=== PATIENT | male | born 1960 | race Caucasian/White ===

== ENCOUNTER → 2016-08-25 | Outpatient (CLI) | payer OTHER ==
--- NOTE | 2016-08-25 22:33 | MR ---
EXAMINATION TYPE: MR lumbar spine wo con DATE OF EXAM: 08/25/2016 10:04 PM COMPARISON: Lumbar spine x-ray June 22, 2015. Outside MRI lumbar spine report July 17, 2015. HISTORY: Lumbar region radiculopathy and lumbosacral region other intervertebral disc displacement pe r order. Low back pain for 10 years causing pain into bilateral lower extremities per patient. TECHNIQUE: Multiplanar, multisequence imaging of the lumbar spine is performed without IV contrast. FINDINGS: Sagittal images of the lumbar spine show vertebral body heights and alignment to appear sat isfactory. There is multilevel disc desiccation with relative sparing of L5-S1 level. There is mild d isc space narrowing L3-L4 and L4-L5 levels noted as discussed on prior report. Small posterior disc h erniations are present at L2-L3-L4-L5 levels mildly effacing anterior thecal sac on sagittal images. The conus medullaris is normal in position and signal ending at superior L1 vertebral body level. Th e bone marrow signal intensity is within normal limits. No significant spurring is present. Axial images show the T12-L1 and L1-L2 levels to appear within normal limits. Axial images at the L2-L3 level show mild broad disc bulge with right foraminal disc protrusion compo nent. There is effacement of the anterior thecal sac. There is mild to moderate anterior inferior rig ht-sided neural foraminal narrowing. Left-sided central foramen is patent. Finding may show interval progression based on comparison with outside report. Axial images at L3-L4 level show mild facet degenerative changes mildly effacing the posterior latera l thecal sac. There is mild to moderate broad disc bulge mildly effacing the anterior thecal sac. The re is mild to moderate bilateral anterior inferior neural foraminal narrowing noted. Axial images at L4-L5 level show mild facet degenerative changes bilaterally. There is broad disc bul ge mildly effacing anterior thecal sac. There is mild to moderate bilateral anterior inferior neural foraminal narrowing at this level identified. Axial images at L5-S1 level show mild facet degenerative changes bilaterally. Spinal canal is preserv ed. Bilateral neural foramina are patent. There are few round T2 hyperintense lesions laterally in right kidney likely reflecting simple cysts. IMPRESSION: Some multilevel degenerative changes most prominent in the lumbar spine at L2-L3 through the L4-L5 levels, there may be progression at L2-L3 level given comparison with old outside MRI repor t.
== END | disposition home or self-care (01) ==
LOC: RADMRIMAIN 21:13
PROVIDERS: ATTEND Neurological Surgery
DX: M47.26 Other spondylosis with radiculopathy, lumbar region (principal)
CPT/HCPCS: 72148

== ENCOUNTER → 2017-08-13 | Outpatient (CLI) | payer OTHER ==
--- NOTE | 2017-08-13 15:50 | MR ---
EXAMINATION TYPE: MR lumbar spine wo/w con DATE OF EXAM: 08/13/2017 COMPARISON: NONE HISTORY: Low Back Pain / Radiculopathy TECHNIQUE: Multiplanar, multisequence images of the lumbar spine were acquired utilizing [address] gadolinium contrast. FINDINGS: The bone marrow signal is slightly heterogenous but overall within normal limits. Vertebral bodies of the lumbar spine maintains vertebral body heights and alignment. Possible 4 mm vertebral b jairo hemangioma seen of L4. The conus medullaris is unremarkable terminating at T12-L1. There is a non enhancing T2 hyperintense and T1 hypointense right renal lesion that is partially visualized but appe ars to measure at least 9 mm, this most likely represents a renal cyst. L1-L2: Normal disc appearance without desiccation. No herniation, protrusion or disc bulging. No ca nal stenosis is present. Foramina are patent bilaterally. L2-L3: There is a right lateral disc herniation with portions in the right lateral recess extending i nto the neural foramen creating mild to moderate neural foraminal narrowing. Left neural foramen and spinal canal are patent. There is minimal facet arthropathy. L3-L4: There is a right eccentric broad-based disc bulge creating moderate bilateral neural foraminal narrowing. Although this has slight mass effect upon the ventral subarachnoid space there is no sign ificant spinal canal stenosis. Minimal facet arthropathy is seen. L4-L5: There is a broad-based disc bulge, facet arthropathy, and minimal ligamentum flavum buckling c reating mild to moderate bilateral neural foraminal narrowing. Small right paracentral annular tear i s also seen on image 9 and sagittal T2 weighted nonfat sat images. No significant spinal canal stenos is. L5-S1: Normal disc appearance without desiccation. No herniation, protrusion or disc bulging. No ca nal stenosis is present. Foramina are patent bilaterally. No abnormal enhancement is seen on postcontrast images throughout the lumbar spine. IMPRESSION: 1. Right lateral disc herniation at L2-L3 creating mild to moderate right neural foraminal narrowing. 2. Mild degenerative disc disease within the lumbar spine creating mild to moderate bilateral neural foraminal narrowing at L4-L5 and moderate bilateral neural foraminal narrowing at L3-L4. 3. No abnormal postcontrast enhancement.
== END | disposition home or self-care (01) ==
LOC: RADMRIMAIN 11:16
PROVIDERS: ATTEND Neurological Surgery
DX: M99.73 Connective tissue and disc stenosis of intervertebral foramina of lumbar region (principal); M51.16 Intervertebral disc disorders with radiculopathy, lumbar region
CPT/HCPCS: 72158; A9581

== ENCOUNTER → 2022-09-29 | Outpatient (CLI) | payer OTHER ==
--- NOTE | 2022-09-29 15:27 | CTL ---
EXAMINATION TYPE: CT Low Dose Lung DATE OF EXAM ORDERED: 09/29/2022 HISTORY: 61-year-old male Z87.891, current smoker, 40 pack-year history history of tobacco dependence CT DLP: 51.6 mGycm Automated exposure control for dose reduction was used. SCREENING VISIT: Baseline COMPARISON: None TECHNIQUE: Low dose computed tomography scan was performed through the chest with coronal and sagitta l reconstructions. CT DIAGNOSTIC QUALITY: Satisfactory FINDINGS: Heart normal size without pericardial effusion. LAD and RCA coronary calcifications are present. 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 Mild atherosclerotic arch calcifications with conventional arch vessel branching anatomy. Mild aneurysm lower descending thoracic aorta at 3.0 cm. By noncontrast technique, no thoracic lymphadenopathy is identified. Severe advanced emphysema. * Both lung bases show nodular areas of subpleural opacity measuring up to 1.3 cm on the left and 1. 4 cm on the right. Areas of pleural-parenchymal scarring are suspected and should be reassessed at fo llow-up. * At the medial right base, there is associated bronchiolectasis. * Spiculation lateral left upper lobe measuring 1.7 x 0.7 cm, axial image 55, could represent additi onal pleural parenchymal scarring but should be reassessed at short interval follow-up. * 8 mm subpleural pulmonary nodule posterior left upper lobe, likely pleural parenchymal scarring, a xial image 43. * A few scattered benign calcified granulomas are noted. No consolidation or pleural effusion. Visualized upper abdomen shows a lateral 2.2 cm right renal cyst. Bones: Superior endplate deformity of T7 has a chronic appearance. IMPRESSION: 1. LungRADS 4A, suspicious; spiculation measuring up to 1.7 cm in the lateral left upper lobe. Additi onal subpleural nodularity especially in the lung bases measuring up to 1.4 cm. All of these could re present areas of pleural-parenchymal scarring and should be reassessed at a three-month follow-up CT chest. 2. COPD with severe advanced emphysema. Advise smoking cessation. 3. 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 LUNG RAD AND CT CHEST RECOMMENDATION: Lung-Rad 4A Suspicious: Follow-up 3 month LDCT or PET/CT may be used when there is a > 8 mm solid component.
== END | disposition home or self-care (01) ==
LOC: RADCTMAIN 13:23
DX: Z12.2 Encounter for screening for malignant neoplasm of respiratory organs (principal); F17.210 Nicotine dependence, cigarettes, uncomplicated; J43.9 Emphysema, unspecified; I71.21 Aneurysm of the ascending aorta, without rupture
CPT/HCPCS: 71271

== ENCOUNTER → 2022-12-27 | Outpatient (CLI) | payer OTHER ==
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
== END | disposition home or self-care (01) ==
LOC: RADPETMAIN 08:30
PROVIDERS: ATTEND Nurse Practitioner Family
DX: J43.9 Emphysema, unspecified (principal); R91.1 Solitary pulmonary nodule
CPT/HCPCS: 78815; A9552

== ENCOUNTER → 2023-05-11 | Outpatient (CLI) | payer MEDICARE ==
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
== END | disposition home or self-care (01) ==
LOC: RADCTMAIN 10:40
PROVIDERS: ATTEND Internal Medicine
DX: J44.9 Chronic obstructive pulmonary disease, unspecified (principal); J98.4 Other disorders of lung; R91.8 Other nonspecific abnormal finding of lung field
CPT/HCPCS: 71260; Q9967

== ENCOUNTER 2023-09-11 15:54 | Emergency (ER) | payer OTHER ==
[2023-09-11 16:34] VITALS: RESP 18
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
[2023-09-11 17:09] VITALS: BP 122/78; PULSE 70; TEMP 98.1
== END 2023-09-11 16:54 | disposition home or self-care (01) ==
LOC: EC 15:54
DX: Z04.3 Encounter for examination and observation following other accident (principal); J44.9 Chronic obstructive pulmonary disease, unspecified; F12.90 Cannabis use, unspecified, uncomplicated; Z79.51 Long term (current) use of inhaled steroids
CPT/HCPCS: 99284

== ENCOUNTER 2023-09-16 16:15 | Emergency (ER) | payer OTHER ==
[2023-09-16 16:36] LABS: Glucose,Whole Blood 83 mg/dL (70-110)
[2023-09-16 17:00] VITALS: TEMP 98.5
[2023-09-16 17:45] LABS: Basophils % (A) 1 %; Eosinophils # (A) 0.3 k/uL (0-0.7); Eosinophils % (A) 5 %; HCT 42.7 % (39.0-53.0); HGB 14.1 gm/dL (13.0-17.5); Lymphocytes # (A) 1.5 k/uL (1.0-4.8); Lymphocytes % (A) 21 %; MCH 31.8 pg (25.0-35.0); MCV 96.4 fL (80.0-100.0); Monocytes # (A) 0.5 k/uL (0-1.0); Monocytes % (A) 6 %; Neutrophils # (A) 4.6 k/uL (1.3-7.7); Neutrophils % (A) 66 %; Platelet Count 184 k/uL (150-450); RBC 4.43 m/uL (4.30-5.90); RDW 13.7 % (11.5-15.5)
--- NOTE | 2023-09-16 17:57 | ED ---
General Adult HPI - General Chief complaint: Shortness of Breath Stated complaint: Weakness Time Seen by Provider: 09/16/23 16:35 Source: patient, RN notes reviewed, old records reviewed Mode of arrival: wheelchair - History of Present Illness Initial comments: This is a 62-year-old male who presents to the emergency department for shortness of breath. Patient was sleeping in the emergency department when I came into the room I woke him up and I asked him if he was having some shortness of breath he said earlier he was. Patient states currently has no complaints. Patient denies any fever chills or cough or patient has any chest pain or palpitations. Patient has abdominal pain patient has nausea vomiting diarrhea. - Related Data Home Medications Medication Instructions Recorded Confirmed ALPRAZolam [Xanax] 1 mg PO TID PRN 09/16/23 09/16/23 Albuterol Sulfate [Albuterol 1 puff PO RT-QID PRN 09/16/23 09/16/23 Sulfate Hfa] Citalopram Hydrobromide [CeleXA] 40 mg PO DAILY 09/16/23 09/16/23 Cyclobenzaprine [Flexeril] 10 mg PO TID PRN 09/16/23 09/16/23 Fluticasone Propion/Salmeterol 1 puff INHALATION RT-BID 09/16/23 09/16/23 [Fluticasone-Salmeterol 250-50] Loratadine 10 mg PO DAILY 09/16/23 09/16/23 Primidone [Mysoline] 100 mg PO BID 09/16/23 09/16/23 Propranolol [Inderal] 40 mg PO BID 09/16/23 09/16/23 Tiotropium 2.5 Mcg/Puff [Spiriva 2 puff INHALATION RT-DAILY 09/16/23 09/16/23 Respimat 2.5 Mcg] buPROPion SR [Wellbutrin SR] 150 mg PO BID 09/16/23 09/16/23 predniSONE 5 mg PO DAILY 09/16/23 09/16/23 Allergies Allergy/AdvReac Type Severity Reaction Status Date / Time No Known Allergies Allergy Verified 09/16/23 19:47 Review of Systems ROS Statement: Those systems with pertinent positive or pertinent negative responses have been documented in the HPI. ROS Other: All systems not noted in ROS Statement are negative. Past Medical History Past Medical History: COPD History of Any Multi-Drug Resistant Organisms: None Reported Past Surgical History: Unable to Obtain Additional Past Surgical History / Comment(s): back, knee Past Psychological History: No Psychological Hx Reported Smoking Status: Current some day smoker Past Alcohol Use History: None Reported Past Drug Use History: Marijuana General Exam - General Exam Comments Initial Comments: GENERAL: Patient is well-developed and well-nourished. Patient is nontoxic and well- hydrated and is in no acute distress. Patient's pulse ox was 96% on room air when I got the history from the patient ENT: Neck is soft and supple. No significant lymphadenopathy is noted. Oropharynx is clear. Moist mucous membranes. Neck has full range of motion without eliciting any pain. EYES: The sclera were anicteric and conjunctiva were pink and moist. Extraocular movements were intact and pupils were equal round and reactive to light. Eyelids were unremarkable. PULMONARY: Unlabored respirations. Good breath sounds bilaterally. No audible rales rhonchi or wheezing was noted. CARDIOVASCULAR: There is a regular rate and rhythm without any murmurs gallops or rubs. ABDOMEN: Soft and nontender with normal bowel sounds. SKIN: Skin is clear with no lesions or rashes and otherwise unremarkable. NEUROLOGIC: Patient is alert and oriented x3. Cranial nerves II through XII are grossly intact. Motor and sensory are also intact. Normal speech, volume and content. Symmetrical smile. MUSCULOSKELETAL: Normal extremities with adequate strength and full range of motion. LYMPHATICS: No significant lymphadenopathy is noted PSYCHIATRIC: Normal psychiatric evaluation. Course Vital Signs 09/16/23 09/16/23 09/16/23 16:31 17:17 18:20 Temperature 98.5 F Pulse Rate 79 76 Respiratory 26 H 24 Rate Blood Pressure 101/71 110/79 O2 Sat by Pulse 85 L 93 L 95 Oximetry Medical Decision Making - Medical Decision Making EKG is interpreted by myself EKG shows a sinus rhythm at 74 bpm HI was 135 QRS is 108 QT interval is 390 QTc is 417. EKG shows no ST segment ovation or depression Was pt. sent in by a medical professional or institution (, PA, EMPLOYMENT RECRUITER, urgent care, hospital, or senior living...) When possible be specific @ -No Did you speak to anyone other than the patient for history (EMS, parent, family, police, friend...)? What history was obtained from this source @ -No Did you review nursing and triage notes (agree or disagree)? Why? @ -I reviewed and agree with nursing and triage notes Were old charts reviewed (outside hosp., previous admission, EMS record, old EKG, old radiological studies, urgent care reports/EKG's, senior living records)? Report findings @ -I reviewed prior charts and prior lab work on this patient Differential Diagnosis (chest pain, altered mental status, abdominal pain women, abdominal pain men, vaginal bleeding, weakness, fever, dyspnea, syncope, headache, dizziness, GI bleed, back pain, seizure, CVA, palpatations, mental health, musculoskeletal)? @ -Differential Dyspnea: Coronary syndrome, arrhythmia, tamponade, asthma, COPD, pulmonary embolism, pneumonia, pneumothorax, pulmonary effusion, anaphylaxis, diabetic ketoacidosis, flailed chest, pulmonary contusion, diaphragmatic rupture, anemia, neuromuscular, this is not meant to be an all-inclusive list. EKG interpreted by me (3pts min.). @ -As above X-rays interpreted by me (1pt min.). @ -Chest x-ray shows no acute abnormality CT interpreted by me (1pt min.). @ -CT of the chest shows no pulmonary embolism no acute abnormality U/S interpreted by me (1pt. min.). @ -None done What testing was considered but not performed or refused? (CT, X-rays, U/S, labs)? Why? @ -None What meds were considered but not given or refused? Why? @ -None Did you discuss the management of the patient with other professionals (professionals i.e. , PA, EMPLOYMENT RECRUITER, lab, RT, psych nurse, social human services assistants, hospital clinic assistant, teacher, foreign service officer, case specialist)? Give summary @ -No Was smoking cessation discussed for >3mins.? @ -No Was critical care preformed (if so, how long)? @ -No Were there social determinants of health that impacted care today? How? (Homelessness, low income, unemployed, alcoholism, drug addiction, transportation, low edu. Level, literacy, decrease access to med. care, prison, rehab)? @ -No Was there de-escalation of care discussed even if they declined (Discuss DNR or withdrawal of care, Hospice)? DNR status @ -No What co-morbidities impacted this encounter? (DM, HTN, Smoking, COPD, CAD, Cancer, CVA, ARF, Chemo, Hep., AIDS, mental health diagnosis, sleep apnea, morbid obesity)? @ -None Was patient admitted / discharged? Hospital course, mention meds given and route, prescriptions, significant lab abnormalities, going to OR and other pertinent info. @ -Patient's blood glucose was 67 patient ate and was asking to be discharged. Lab work did not show any acute abnormality x-ray and CT showed no acute ab normality. Patient's pulse ox was 96% on room air and patient was up and ambulating without any problem. Patient was requesting again to go home. Patient did not complain of any difficulty breathing at this time Undiagnosed new problem with uncertain prognosis? @ -No Drug Therapy requiring intensive monitoring for toxicity (Heparin, Nitro, Insulin, Cardizem)? @ -No Were any procedures done? @ -No Diagnosis/symptom? @ -Transient dyspnea Acute, or Chronic, or Acute on Chronic? @ -Acute Uncomplicated (without systemic symptoms) or Complicated (systemic symptoms)? @ -Complicated Side effects of treatment? @ -No Exacerbation, Progression, or Severe Exacerbation? @ -No Poses a threat to life or bodily function? How? (Chest pain, [place], [place], pneumonia, PE, COPD, DKA, ARF, appy, cholecystitis, CVA, Diverticulitis, Homicidal, Suicidal, threat to staff... and all critical care pts) @ -No - Lab Data Result diagrams: 09/16/23 17:36 09/16/23 17:36 Lab Results 09/16/23 09/16/23 09/16/23 Range/Units 16:34 17:36 17:36 WBC 7.0 (3.8-10.6) k/uL RBC 4.43 (4.30-5.90) m/uL Hgb 14.1 (13.0-17.5) gm/dL Hct 42.7 (39.0-53.0) % MCV 96.4 (80.0-100.0) fL MCH 31.8 (25.0-35.0) pg MCHC 33.0 (31.0-37.0) g/dL RDW 13.7 (11.5-15.5) % Plt Count 184 (150-450) k/uL MPV 8.0 Neutrophils % 66 % Lymphocytes % 21 % Monocytes % 6 % Eosinophils % 5 % Basophils % 1 % Neutrophils # 4.6 (1.3-7.7) k/uL Lymphocytes # 1.5 (1.0-4.8) k/uL Monocytes # 0.5 (0-1.0) k/uL Eosinophils # 0.3 (0-0.7) k/uL Basophils # 0.0 (0-0.2) k/uL PT 10.3 (10.0-12.5) sec INR 0.9 (<1.2) APTT 24.6 (22.0-30.0) sec D-Dimer 1.31 H (<0.60) mg/L FEU Sodium (137-145) mmol/L Potassium (3.5-5.1) mmol/L Chloride (98-107) mmol/L Carbon Dioxide (22-30) mmol/L Anion Gap mmol/L BUN (9-20) mg/dL Creatinine (0.66-1.25) mg/dL Est GFR (CKD-EPI)AfAm (>60 ml/min/1.73 sqM) Est GFR (CKD-EPI)NonAf (>60 ml/min/1.73 sqM) Glucose (74-99) mg/dL POC Glucose (mg/dL) 83 (70-110) mg/dL POC Glu Final Inspector [employer]cy[employer] ID Cherri Chung Plasma Lactic Acid Ben (0.7-2.0) mmol/L Calcium (8.4-10.2) mg/dL Magnesium (1.6-2.3) mg/dL Total Bilirubin (0.2-1.3) mg/dL AST (17-59) U/L ALT (4-49) U/L Alkaline Phosphatase (38-126) U/L Troponin I (0.000-0.034) ng/mL NT-Pro-B Natriuret Pep pg/mL Total Protein (6.3-8.2) g/dL Albumin (3.5-5.0) g/dL Influenza Type A (PCR) (Not Detectd) Influenza Type B (PCR) (Not Detectd) RSV (PCR) (Not Detectd) SARS-CoV-2 (PCR) (Not Detectd) 09/16/23 09/16/23 09/16/23 Range/Units 17:36 17:36 17:36 WBC (3.8-10.6) k/uL RBC (4.30-5.90) m/uL Hgb (13.0-17.5) gm/dL Hct (39.0-53.0) % MCV (80.0-100.0) fL MCH (25.0-35.0) pg MCHC (31.0-37.0) g/dL RDW (11.5-15.5) % Plt Count (150-450) k/uL MPV Neutrophils % % Lymphocytes % % Monocytes % % Eosinophils % % Basophils % % Neutrophils # (1.3-7.7) k/uL Lymphocytes # (1.0-4.8) k/uL Monocytes # (0-1.0) k/uL Eosinophils # (0-0.7) k/uL Basophils # (0-0.2) k/uL PT (10.0-12.5) sec INR (<1.2) APTT (22.0-30.0) sec D-Dimer (<0.60) mg/L FEU Sodium 129 L (137-145) mmol/L Potassium 4.5 (3.5-5.1) mmol/L Chloride 96 L (98-107) mmol/L Carbon Dioxide 27 (22-30) mmol/L Anion Gap 6 mmol/L BUN 14 (9-20) mg/dL Creatinine 0.77 (0.66-1.25) mg/dL Est GFR (CKD-EPI)AfAm >90 (>60 ml/min/1.73 sqM) Est GFR (CKD-EPI)NonAf >90 (>60 ml/min/1.73 sqM) Glucose 67 L (74-99) mg/dL POC Glucose (mg/dL) (70-110) mg/dL POC Glu Final Inspector [employer]cyles ID Plasma Lactic Acid Ben 1.2 (0.7-2.0) mmol/L Calcium 8.3 L (8.4-10.2) mg/dL Magnesium 2.0 (1.6-2.3) mg/dL Total Bilirubin 0.6 (0.2-1.3) mg/dL AST 30 (17-59) U/L ALT 18 (4-49) U/L Alkaline Phosphatase 74 (38-126) U/L Troponin I <0.012 (0.000-0.034) ng/mL NT-Pro-B Natriuret Pep 232 pg/mL Total Protein 6.2 L (6.3-8.2) g/dL Albumin 3.4 L (3.5-5.0) g/dL Influenza Type A (PCR) (Not Detectd) Influenza Type B (PCR) (Not Detectd) RSV (PCR) (Not Detectd) SARS-CoV-2 (PCR) (Not Detectd) 09/16/23 09/16/23 09/16/23 Range/Units 17:36 19:29 20:00 WBC (3.8-10.6) k/uL RBC (4.30-5.90) m/uL Hgb (13.0-17.5) gm/dL Hct (39.0-53.0) % MCV (80.0-100.0) fL MCH (25.0-35.0) pg MCHC (31.0-37.0) g/dL RDW (11.5-15.5) % Plt Count (150-450) k/uL MPV Neutrophils % % Lymphocytes % % Monocytes % % Eosinophils % % Basophils % % Neutrophils # (1.3-7.7) k/uL Lymphocytes # (1.0-4.8) k/uL Monocytes # (0-1.0) k/uL Eosinophils # (0-0.7) k/uL Basophils # (0-0.2) k/uL PT (10.0-12.5) sec INR (<1.2) APTT (22.0-30.0) sec D-Dimer (<0.60) mg/L FEU Sodium (137-145) mmol/L Potassium (3.5-5.1) mmol/L Chloride (98-107) mmol/L Carbon Dioxide (22-30) mmol/L Anion Gap mmol/L BUN (9-20) mg/dL Creatinine (0.66-1.25) mg/dL Est GFR (CKD-EPI)AfAm (>60 ml/min/1.73 sqM) Est GFR (CKD-EPI)NonAf (>60 ml/min/1.73 sqM) Glucose (74-99) mg/dL POC Glucose (mg/dL) 56 L 64 L (70-110) mg/dL POC Glu Final Inspector [employer]cyles David Lazo CollinDavid ku Plasma Lactic Acid Ben (0.7-2.0) mmol/L Calcium (8.4-10.2) mg/dL Magnesium (1.6-2.3) mg/dL Total Bilirubin (0.2-1.3) mg/dL AST (17-59) U/L ALT (4-49) U/L Alkaline Phosphatase (38-126) U/L Troponin I (0.000-0.034) ng/mL NT-Pro-B Natriuret Pep pg/mL Total Protein (6.3-8.2) g/dL Albumin (3.5-5.0) g/dL Influenza Type A (PCR) Not Detected (Not Detectd) Influenza Type B (PCR) Not Detected (Not Detectd) RSV (PCR) Not Detected (Not Detectd) SARS-CoV-2 (PCR) Not Detected (Not Detectd) Disposition Clinical Impression: Dyspnea Disposition: HOME SELF-CARE Instructions (If sedation given, give patient instructions): Dyspnea (ED) Is patient prescribed a controlled substance at d/c from ED?: No Referrals: Nonstaff,Physician [REFERRING] - 1-2 days Time of Disposition: 20:08
[2023-09-16 18:07] LABS: ALT 18 U/L (4-49); AST 30 U/L (17-59); African American GFR (CKD) >90 (>60 ml/min/1.73 sqM); Albumin 3.4 g/dL (3.5-5.0); Alkaline Phosphatase 74 U/L (38-126); Anion Gap 6 mmol/L; Blood Urea Nitrogen 14 mg/dL (9-20); Calcium 8.3 mg/dL (8.4-10.2); Carbon Dioxide 27 mmol/L (22-30); Chloride 96 mmol/L (98-107); Glucose 67 mg/dL (74-99); Non-African American GFR(CKD) >90 (>60 ml/min/1.73 sqM); Sodium 129 mmol/L (137-145); Total Bilirubin 0.6 mg/dL (0.2-1.3); Total Protein 6.2 g/dL (6.3-8.2)
[2023-09-16 18:08] LABS: INR 0.9 (<1.2); Partial Thromboplastin Time 24.6 sec (22.0-30.0); Prothrombin Time 10.3 sec (10.0-12.5)
[2023-09-16 18:15] LABS: NT-Pro-B-Type Natriuretic Pept 232 pg/mL
--- NOTE | 2023-09-16 18:15 | XR ---
EXAMINATION TYPE: XR chest 2V DATE OF EXAM: 09/16/2023 COMPARISON: 05/04/2023 HISTORY: Shortness of breath TECHNIQUE: Frontal and lateral views of the chest are obtained. FINDINGS: Scattered senescent parenchymal changes noted. Hyperinflation compatible with COPD. No evidence for infiltrate. No evidence for atelectasis. Heart size is stable. Mediastinal structures are stable and grossly unremarkable. No evidence for hilar prominence. Degenerative changes dorsal spine. IMPRESSION: 1. No evidence for acute pulmonary disease.
[2023-09-16 18:24] LABS: Potassium 4.5 mmol/L (3.5-5.1)
[2023-09-16 18:32] VITALS: PULSE 76
--- NOTE | 2023-09-16 19:23 | CT ---
EXAMINATION TYPE: CT chest angio for PE DATE OF EXAM: 09/16/2023 COMPARISON: None HISTORY: elevated D dimer CT DLP: 257.2 mGycm CONTRAST: CT chest with contrast and 3D reconstruction with MIP imaging is performed with IV Contrast, patient injected with 65 mL of Isovue 370. Contrast-enhanced CT of the chest was performed through the course of the pulmonary arteries with rafael g and mediastinal window settings submitted. 3D reconstruction with MIP imaging was also performed. PULMONARY ARTERIES: The pulmonary arteries and their major tributaries are patent. I do not see park dence for sizable filling defect to suggest pulmonary embolic process. LUNGS: Severe emphysematous changes noted The lungs are clear and free of infiltrate. No evidence for atelectasis. No pulmonary nodule or mass is detected. No pleural effusion. MEDIASTINUM: Thoracic aorta is of normal caliber,however, evaluation is limited given timing of the contrast bolus. If there is concern for thoracic aortic pathology consider KOBI. Correlate clinicall y . The heart is not enlarged. No evidence for mediastinal mass. No mediastinal lymph nodes greater than 1cm. HILAR STRUCTURES: No evidence for mass. No hilar lymph nodes greater than 1 cm. UPPER ABDOMEN: No significant abnormality is seen. IMPRESSION: 1. No evidence for Pulmonary embolism at this time.
[2023-09-16 19:31] LABS: Glucose,Whole Blood 56 mg/dL (70-110)
[2023-09-16] MEDS: SODIUM CHLORIDE 0.9% 500 ML 500 ML IV ONE (19:48)
[2023-09-16 20:01] LABS: Glucose,Whole Blood 64 mg/dL (70-110)
[2023-09-16 20:29] LABS: Glucose,Whole Blood 69 mg/dL (70-110)
[2023-09-16 20:58] VITALS: BP 106/68; RESP 22
== END 2023-09-16 20:40 | disposition home or self-care (01) ==
LOC: EC 16:15
DX: R06.00 Dyspnea, unspecified (principal); J44.9 Chronic obstructive pulmonary disease, unspecified; F12.90 Cannabis use, unspecified, uncomplicated; F17.200 Nicotine dependence, unspecified, uncomplicated; Z79.51 Long term (current) use of inhaled steroids; Z79.52 Long term (current) use of systemic steroids; Z79.899 Other long term (current) drug therapy; Z20.822 Contact with and (suspected) exposure to COVID-19
CPT/HCPCS: 36415; 93005; 85379; 83880; 80053; 83605; 83735; 84484; 85025; 85610; 85730; 87636; 71046; 71275; 99285; Q9967

== ENCOUNTER → 2023-10-06 | Outpatient (CLI) | payer OTHER ==
--- NOTE | 2023-10-06 13:48 | CT ---
EXAMINATION TYPE: CT chest w con CT DLP: 132.9 mGycm, Automated exposure control for dose reduction was used. DATE OF EXAM: 10/06/2023 12:51 PM COMPARISON: 05/11/2023, PET/CT 12/27/2022 09/16/2023. CLINICAL INDICATION:Male, 62 years old with history of R91.8 OTHER NONSPECIFIC ABNORMAL FINDING OF TOREY NG F; PHH, abnormal findings of lung field TECHNIQUE: Multiple axial images were obtained through the chest. Sagittal and coronal reformats were created for review. Contrast used:100 mL of Isovue 300 with IV Contrast (None if empty) Oral contrast used: (None if empty) FINDINGS: LUNGS/ PLEURA: Severe centrilobular emphysema changes. Consolidation changes along the medial right l ower lung. Scarring changes in the left upper lung near the apex. AIRWAY: Patent and unremarkable. HEART: Size within normal limits. Moderate coronary artery atherosclerosis. MEDIASTINUM: No gross evidence of adenopathy. VASCULATURE: No aortic aneurysm. Vessels of the aortic arch are patent. MUSCULOSKELETAL: Wedge compression deformity of the L3 vertebral body. SOFT TISSUES/LYMPH NODES: Unremarkable. LOWER NECK: No significant findings. UPPER ABDOMEN: The most inferior images of the abdomen/pelvis show occlusion of the aorta series 3 im age 80. Visualized renal arteries are patent. IMPRESSION: 1. Severe emphysema. No suspicious pulmonary nodules at this time. 2. The most inferior images of the abdomen/pelvis show occlusion of the aorta series 3 image 82. Cor relate with CTA abdomen pelvis if not recently performed at outside institution. 3. Wedge compression of the L3 vertebral body this is new from prior PET/CT on 12/27/2022.This partia lly visualized on 09/16/2023. Non the [id number] on other exams.
== END | disposition home or self-care (01) ==
LOC: RADCTMAIN 12:06
PROVIDERS: ATTEND Internal Medicine
DX: J43.2 Centrilobular emphysema (principal); I74.09 Other arterial embolism and thrombosis of abdominal aorta; M24.89 Other specific joint derangement of other specified joint, not elsewhere classified; R91.8 Other nonspecific abnormal finding of lung field
CPT/HCPCS: 71260; Q9967

== ENCOUNTER → 2023-11-16 | Outpatient (CLI) | payer OTHER ==
--- NOTE | 2023-11-17 14:07 | CT ---
EXAMINATION TYPE: CT angio abdomen pelvis CT DLP: 529.20 mGycm, Automated exposure control for dose reduction was used. DATE OF EXAM: 11/16/2023 3:08 PM COMPARISON: CT chest 10/06/2023.. . CLINICAL INDICATION:Male, 62 years old with history of I74.9 embolism; PHH, abnormal finds on previou s CT scan TECHNIQUE: Multiple thin slice sub-millimeter images were obtained after administration of contrast. 3-D reconstructed images and maximum intensity projection images were obtained. CT angio abdomen pel vis CT Contrast: Contrast used:100 ml mL of Isovue 370 with IV Contrast, Oral contrast used: without Oral Contrast None FINDINGS: CTA Abdomen and pelvis: The abdominal aorta does not demonstrate aneurysmal dilatation. Moderately s evere calcific atherosclerotic plaquing is identified within the abdominal aorta. The proximal abdominal aorta is ectatic 2.6 cm. There is mural thrombus bilaterally patent channel ex ist consistent artery. The origins of the superior mesenteric artery, renal arteries, inferior mesenteric artery, and celiac axis are patent. The right internal iliac artery becomes occluded shortly after takeoff. There are some collateral vessels present. The left common iliac becomes occluded 3 cm after its origin but rec onstitutes with the large feeding vessel off the SMA which occurs near the origin of the common femor al. CTA Lower extremities: Right: The common femoral and superficial femoral arteries are patent. Left: The common femoral and superficial femoral arteries are patent after reconstitution from a bran ch of the SMA.. LOWER CHEST: No evidence of focal consolidation, pneumothorax or pleural effusion. LIVER: Unremarkable GALLBLADDER AND BILE DUCTS: Unremarkable. PANCREAS: Unremarkable. SPLEEN: Unremarkable. ADRENAL GLANDS: Unremarkable. KIDNEYS AND URETERS: Right renal cyst identified appears simple. Therefore no follow-up is recomm ended. No evidence of hydronephrosis or renal calculus. The ureters are unremarkable. PELVIS BLADDER: Unremarkable REPRODUCTIVE: Unremarkable. ABDOMEN & PELVIS STOMACH AND BOWEL: Stomach and duodenum are unremarkable. No evidence of bowel obstruction. PERITONEUM: No evidence of pneumoperitoneum or free fluid. VASCULATURE: No evidence of aortic aneurysm. MUSCULOSKELETAL: No acute osseous abnormalities LYMPH NODES: No gross evidence for lymphadenopathy. SOFT TISSUE/ABDOMINAL WALL: Unremarkable IMPRESSION 1. 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 2. 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 Atherosclerotic disease involving abdominal aorta and lower extremity vasculature.
== END | disposition home or self-care (01) ==
LOC: RADCTMAIN 12:12
PROVIDERS: ATTEND Internal Medicine
DX: I74.5 Embolism and thrombosis of iliac artery (principal); I70.0 Atherosclerosis of aorta; I70.8 Atherosclerosis of other arteries
CPT/HCPCS: 74174; Q9967